=== PATIENT | male | born 1955 | race Caucasian/White ===

== ENCOUNTER 2021-07-24 11:58 | Outpatient (CLI) | payer MEDICARE, OTHER | END 2021-07-24 11:59 | disposition home or self-care (01) | LOC: SCSRAD 11:58 | PROVIDERS: ATTEND Specialist | DX: M51.17 Intervertebral disc disorders with radiculopathy, lumbosacral region (principal); M25.551 Pain in right hip; M43.16 Spondylolisthesis, lumbar region; M16.11 Unilateral primary osteoarthritis, right hip | CPT/HCPCS: 72120 ==

== ENCOUNTER 2021-08-07 12:53 | Outpatient (CLI) | payer MEDICARE, OTHER | END 2021-08-07 12:54 | disposition home or self-care (01) | LOC: BICCT 12:53 | PROVIDERS: ATTEND Specialist | DX: M51.17 Intervertebral disc disorders with radiculopathy, lumbosacral region (principal); M25.551 Pain in right hip; M47.26 Other spondylosis with radiculopathy, lumbar region; M48.061 Spinal stenosis, lumbar region without neurogenic claudication | CPT/HCPCS: 72131 ==

== ENCOUNTER 2021-11-21 07:24 | Day surgery (SDC) | payer MEDICARE, OTHER ==
[2021-11-10 14:09] VITALS: BMI 23.6
[2021-11-21 08:22] VITALS: TEMP 97.6
[2021-11-21 15:43] VITALS: BP 103/85
== END 2021-11-21 10:15 | disposition home or self-care (01) ==
LOC: RAD 07:24
PROVIDERS: ATTEND Surgery
PROC: B01B1ZZ Fluoroscopy of Spinal Cord using Low Osmolar Contrast (ICD-10-PCS; principal; 2021-11-21)
DX: M47.26 Other spondylosis with radiculopathy, lumbar region (principal); M51.16 Intervertebral disc disorders with radiculopathy, lumbar region; M43.16 Spondylolisthesis, lumbar region; M48.061 Spinal stenosis, lumbar region without neurogenic claudication; M47.817 Spondylosis without myelopathy or radiculopathy, lumbosacral region; N26.1 Atrophy of kidney (terminal); Z79.4 Long term (current) use of insulin; Z79.82 Long term (current) use of aspirin; Z79.890 Hormone replacement therapy; Z79.899 Other long term (current) drug therapy; Z95.0 Presence of cardiac pacemaker
CPT/HCPCS: 62304; 72132

== ENCOUNTER 2022-01-01 09:02 | Outpatient (CLI) | payer MEDICARE, OTHER ==
[2022-01-01 10:29] LABS: Mean Corpuscular HGB CONC 32.4 g/dL (32.0-36.0); Mean Corpuscular Hemoglobin 26.8 pg (27.0-33.0); Mean Corpuscular Volume 82.7 fl (81.2-95.1); Mean Platelet Volume 8.9 fl (7.4-10.4); Platelet Count 253 10x3/uL (150-450); RBC Distribution Width 14.3 % (11.5-14.5); White Blood Cell (WBC) Count 5.1 10x3/uL (3.5-10.5)
[2022-01-01 10:37] LABS: PTT 25.6 sec (22.0-33.0); Prothrombin Time 10.6 sec (9.5-12.1)
[2022-01-01 10:44] LABS: Anion Gap 14 mmol/L (10-20); BUN (Urea Nitrogen) 25 mg/dL (8.4-25.7); Calc. Creatinine Clearance 0 mL/min (70-130); Calcium 9.4 mg/dL (7.8-10.44); Carbon Dioxide 27 mmol/L (23-31); Chloride 101 mmol/L (98-107); Glucose 191 mg/dL (80-115); Potassium 4.2 mmol/L (3.5-5.1); Sodium 138 mmol/L (136-145)
== END 2022-01-01 09:03 | disposition home or self-care (01) ==
LOC: LABBT 09:02
PROVIDERS: ATTEND Surgery
DX: Z01.818 Encounter for other preprocedural examination (principal); M51.16 Intervertebral disc disorders with radiculopathy, lumbar region; Z20.822 Contact with and (suspected) exposure to COVID-19
CPT/HCPCS: 80048; 85027; 85610; 85730; 93005; U0003; U0005; 93010

== ENCOUNTER 2022-01-06 05:48 | Observation (INO) | payer MEDICARE, OTHER ==
[2022-01-01 12:59] VITALS: BMI 24.3
[2022-01-06] MEDS ORDERED: Thrombin 5000 UNITS/5 ML VIAL ONE (06:43)
[2022-01-06] MEDS ORDERED: fentaNYL Citrate/PF 100 MCG/2 ML SYRINGE ONE (07:19)
[2022-01-06] MEDS ORDERED: Ketamine 50 MG/ML (10ML VIAL) ONE (07:19)
[2022-01-06] MEDS ORDERED: CEFAZOLIN 2 GM VIAL ONE (07:21)
[2022-01-06] MEDS ORDERED: Sodium Chloride 0.9% 100 ML ONE (07:27)
[2022-01-06] MEDS ORDERED: Morphine 2 MG/ML VIAL SLOW IVP PRN (07:38)
[2022-01-06] MEDS ORDERED: Acetaminophen 325 MG TAB PO PRN (07:38)
[2022-01-06] MEDS ORDERED: traMADol HCl 50 MG TAB PO PRN (07:38)
[2022-01-06] MEDS ORDERED: Acetaminophen/Codeine 30-300mg Tablet PO PRN (07:38)
[2022-01-06] MEDS ORDERED: Ondansetron PF 4 MG/2 ML Vial IVP PRN (07:38)
[2022-01-06] MEDS ORDERED: tiZANidine HCl 4 MG TAB PO PRN (07:40)
[2022-01-06] MEDS ORDERED: Furosemide 40 MG TAB PO PRN (07:41)
[2022-01-06] MEDS ORDERED: Non-Formulary Item 1 EACH (Hydralazine Hcl [Hydralazine Hcl] 100 MG Tablet) PO PRN (07:41)
[2022-01-06] MEDS ORDERED: HumaLOG 300 UNITS/3 ML VIAL SC PRN (07:41)
[2022-01-06] MEDS ORDERED: hydrALAZINE 20 MG/ML VIAL SLOW IVP PRN (07:41)
[2022-01-06] MEDS ORDERED: Tacrolimus 0.5 MG CAP PO SCH ×2 (07:45→21:00)
[2022-01-06] MEDS ORDERED: Non-Formulary Item 1 EACH (Tadalafil [Cialis] 5 MG Tablet) PO SCH (07:45)
[2022-01-06] MEDS ORDERED: hydrALAZINE 25 MG TAB PO PRN (08:09)
[2022-01-06] MEDS ORDERED: PHENYLEPHRINE-NS 100 MCG/ML 10 ML SYRINGE ONE (08:10)
[2022-01-06] MEDS ORDERED: Tadalafil [Cialis] 5 MG Tablet PO SCH (08:15)
[2022-01-06] MEDS ORDERED: K-Phos Neutral 250 MG TAB PO SCH (09:00)
[2022-01-06] MEDS ORDERED: Non-Formulary Item 1 EACH (Multivitamin [Multivitamin] 1 EACH Tablet) PO SCH (09:00)
[2022-01-06] MEDS ORDERED: Non-Formulary Item 1 EACH (Levothyroxine Sodium [Synthroid] 137 MCG Tablet) PO SCH (09:00)
[2022-01-06] MEDS ORDERED: SIROLIMUS 0.5 MG PO SCH (09:00)
[2022-01-06] MEDS ORDERED: Non-Formulary Item 1 EACH (Losartan Potassium [Cozaar] 50 MG Tab) PO SCH (09:00)
[2022-01-06] MEDS ORDERED: Non-Formulary Item 1 EACH (Insulin Glargine,Hum.Rec.Anlog [Lantus Solostar] 100 UNIT/ML P SC SCH (09:00)
[2022-01-06] MEDS ORDERED: Ondansetron HCl/PF 4 MG/2 ML Vial IVP PRN (09:14)
[2022-01-06] MEDS ORDERED: Promethazine HCl 25 MG/ML VIAL IM PRN (09:14)
[2022-01-06] MEDS ORDERED: PACU-Morphine 4MG/ML VIAL SLOW IVP PRN (09:14)
[2022-01-06] MEDS ORDERED: HYDROmorphone 2 MG/ML VIAL SLOW IVP PRN (09:14)
[2022-01-06] MEDS ORDERED: Promethazine HCl 25 MG/ML VIAL IVPB PRN (09:14)
[2022-01-06] MEDS ORDERED: Morphine Sulfate 2 MG/ML SYRINGE SLOW IVP PRN (09:14)
[2022-01-06] MEDS ORDERED: ceFAZolin 2 GM/Dextrose 50 ML 2 GM in Premix Bag 1 BAG IVPB SCH (10:00)
[2022-01-06] MEDS ORDERED: Fentanyl 100 MCG/2 ML VIAL ONE ×2 (10:05→12:20)
[2022-01-06] MEDS: Tamsulosin HCl 0.4 MG CAP PO SCH (14:07)
[2022-01-06] MEDS: HYDROcodone/Acetaminophen 7.5/325 mg Tablet PO PRN ×2 (14:08→21:09)
[2022-01-06] MEDS: Gabapentin 400 MG CAP PO SCH ×4 (14:08→21:08)
[2022-01-06] MEDS: CEFAZOLIN 2 GM in Sodium Chloride 0.9% 100 ML IVPB SCH ×2 (14:09→21:08)
[2022-01-06] MEDS: Sodium Chloride 0.9% 1,000 ML IV SCH ×2 (14:09→21:08)
[2022-01-06] MEDS: HYDROcodone/Acetaminophen 10/325 mg Tablet PO SCH ×2 (15:26→17:37)
[2022-01-06] MEDS: Multivit, Therapeutic 1 TAB PO SCH (15:27)
[2022-01-06] MEDS: K-Phos Neutral 250 MG TAB PO SCH ×2 (15:27→21:07)
[2022-01-06] MEDS: Magnesium Oxide 250 MG TAB PO SCH ×2 (15:27→21:07)
[2022-01-06] MEDS: Losartan 25 MG TAB PO SCH ×2 (15:27→21:15)
[2022-01-06] MEDS: Insulin Glargine 30 UNITS/0.3 ML VIAL SC SCH (15:27)
[2022-01-06] MEDS: Tacrolimus 0.5 MG CAP PO SCH (15:28)
[2022-01-06] MEDS: predniSONE 5 MG TAB PO SCH (15:28)
[2022-01-06] MEDS ORDERED: Atorvastatin Calcium 40 MG TAB PO SCH (21:00)
[2022-01-06] MEDS ORDERED: Zolpidem Tartrate 5 MG TAB PO SCH (21:00)
[2022-01-06] MEDS ORDERED: Non-Formulary Item 1 EACH (Atorvastatin Calcium [Atorvastatin Calcium] 80 MG Tablet) PO SCH (21:00)
[2022-01-06] MEDS ORDERED: Non-Formulary Item 1 EACH (Zolpidem Tartrate [Ambien] 10 MG Tablet) PO SCH (21:00)
[2022-01-07] MEDS ORDERED: Levothyroxine Sodium 25 MCG TAB PO SCH (06:00)
[2022-01-07] MEDS ORDERED: Levothyroxine Sodium 112 MCG TAB PO SCH (06:00)
[2022-01-07] MEDS: HYDROcodone/Acetaminophen 7.5/325 mg Tablet PO PRN (06:07)
[2022-01-07 08:40] VITALS: BP 108/75; TEMP 98.4
[2022-01-07] MEDS: HYDROcodone/Acetaminophen 10/325 mg Tablet PO SCH (09:10)
[2022-01-07] MEDS: Multivit, Therapeutic 1 TAB PO SCH (09:16)
[2022-01-07] MEDS: K-Phos Neutral 250 MG TAB PO SCH (09:16)
[2022-01-07] MEDS: Magnesium Oxide 250 MG TAB PO SCH (09:16)
[2022-01-07] MEDS: Losartan 25 MG TAB PO SCH (09:16)
[2022-01-07] MEDS: Insulin Glargine 30 UNITS/0.3 ML VIAL SC SCH (09:16)
[2022-01-07] MEDS: predniSONE 5 MG TAB PO SCH (09:17)
[2022-01-07] MEDS: Gabapentin 400 MG CAP PO SCH (09:17)
[2022-01-07] MEDS: Tacrolimus 0.5 MG CAP PO SCH (09:17)
[2022-01-07] MEDS: Tamsulosin HCl 0.4 MG CAP PO SCH (09:17)
== END 2022-01-07 11:30 | disposition home or self-care (01) ==
LOC: SDC 05:48 → T4-B 07:44
PROVIDERS: ADMIT Surgery; ATTEND Surgery
PROC: 0SB20ZZ Excision of Lumbar Vertebral Disc, Open Approach (ICD-10-PCS; principal; 2022-01-06)
DX: M51.16 Intervertebral disc disorders with radiculopathy, lumbar region (principal); M48.061 Spinal stenosis, lumbar region without neurogenic claudication; Z79.4 Long term (current) use of insulin; Z79.52 Long term (current) use of systemic steroids; Z79.82 Long term (current) use of aspirin; Z79.890 Hormone replacement therapy; Z79.899 Other long term (current) drug therapy; Z94.0 Kidney transplant status; Z94.1 Heart transplant status; Z95.5 Presence of coronary angioplasty implant and graft; Z95.810 Presence of automatic (implantable) cardiac defibrillator
CPT/HCPCS: 36416; 76000; 96374; 96376; G0378; J0690; J1815; J3010; J3370; J3490; J7050; J7507